=== PATIENT | female | born 1950 | race Caucasian/White ===

== ENCOUNTER 2021-11-12 07:48 | Outpatient (CLI) | payer MEDICARE, BC, SELFPAY ==
[2021-11-12 12:01] LABS: Alanine Aminotransferase* 33 U/L (4-35); Triglycerides* 52 mg/dL (40-149)
[2021-11-12 12:02] LABS: Cholesterol* 233 mg/dL (90-199); HDL Cholesterol* 104 mg/dL (>=50); LDL Cholesterol Calculated 119 mg/dL (<100)
[2021-11-12 12:04] LABS: Glucose* 95 mg/dL (60-115)
== END 2021-11-12 07:49 | disposition home or self-care (01) ==
PROVIDERS: PCP Internal Medicine; Visit Provider Internal Medicine
DX: Z00.00 Encounter for general adult medical examination without abnormal findings (principal); E78.5 Hyperlipidemia, unspecified; Z13.6 Encounter for screening for cardiovascular disorders
CPT/HCPCS: 80061; 82947; 84460

== ENCOUNTER 2021-11-17 08:46 | Outpatient (CLI) | payer MEDICARE, BC, SELFPAY ==
--- NOTE | 2021-11-17 09:15 | CRLHL7_ITS ---
For Patients: As a result of the Century Cures Act, medical imaging exams and procedure reports are released immediately into your electronic medical record. You may view this report before your referring provider. If you have questions, please contact your health care provider. BILATERAL SCREENING MAMMOGRAM WITH COMPUTER-AIDED DETECTION AND TOMOSYNTHESIS TECHNIQUE: CC and MLO views were obtained. These mammographic images have been obtained using full-field digital technique. These mammographic images were interpreted with the benefit of computer-aided detection. Breast Tomosynthesis was used in this interpretation. COMPARISON FILM: 10/29/20, 10/29/19, 07/18/18. FINDINGS: There are scattered areas of fibroglandular density IMPRESSION: There is no radiographic evidence for malignancy. ASSESSMENT: BI-RADS Category 1: Negative RECOMMENDATION: Routine screening mammogram in 1 year. A lay language report of this examination will be provided to the patient. Jason Dumont M.D. Diagnostic Radiologist [email or web address] WILLIE/Dictated by: Jason Dumont MD @ 11/17/2021 12:43:00 PM (Electronically Signed)
== END 2021-11-17 08:47 | disposition home or self-care (01) ==
LOC: MAMMO 08:48
PROVIDERS: PCP Internal Medicine; Visit Provider Internal Medicine
DX: Z12.31 Encounter for screening mammogram for malignant neoplasm of breast (principal)
CPT/HCPCS: 77063; 77067

== ENCOUNTER 2022-11-19 07:49 | Outpatient (CLI) | payer MEDICARE, SELFPAY ==
--- NOTE | 2022-11-19 08:15 | CRLHL7_ITS ---
For Patients: As a result of the Century Cures Act, medical imaging exams and procedure reports are released immediately into your electronic medical record. You may view this report before your referring provider. If you have questions, please contact your health care provider. BILATERAL SCREENING MAMMOGRAM WITH COMPUTER-AIDED DETECTION AND TOMOSYNTHESIS TECHNIQUE: CC and MLO views were obtained. These mammographic images have been obtained using full-field digital technique. These mammographic images were interpreted with the benefit of computer-aided detection. Breast Tomosynthesis was used in this interpretation. COMPARISON FILM: 11/17/21, 10/29/20, 10/29/19. FINDINGS: There are scattered areas of fibroglandular density IMPRESSION: There is no radiographic evidence for malignancy. ASSESSMENT: BI-RADS Category 2: Benign RECOMMENDATION: Routine screening mammogram in 1 year. A lay language report of this examination will be provided to the patient. Jason Dumont M.D. Diagnostic Radiologist [email or web address] WILLIE/Dictated by: Jason Dumont MD @ 11/25/2022 11:00:00 AM (Electronically Signed)
== END 2022-11-19 07:50 | disposition home or self-care (01) ==
LOC: MAMMO 07:51
PROVIDERS: PCP Internal Medicine; Visit Provider Internal Medicine
DX: Z12.31 Encounter for screening mammogram for malignant neoplasm of breast (principal)
CPT/HCPCS: 77063; 77067; 80061

== ENCOUNTER 2023-11-21 08:25 | Outpatient (CLI) | payer MEDICARE, BC, SELFPAY ==
--- OUTSIDE RECORDS SUMMARY | 2023-11-25 00:30 | XMS_ITS | Clinical Summary ---
Author Organization [facility] Address [place], [place] [address] Care Team Providers Care Aerial Hurricane Hunter Name Role Phone Provider, [facility] Primary Care Provider Un available Allergies No known active allergies Medications Medication Sig Dispensed Refills Start Date End Date Status MULTIVITAMIN/IRON/FOLI C ACID (CENTRUM ULTRA WOMEN'S ORAL) Take 1 tablet by mouth once daily. Active medication order composer TRIPLE FLEX 50, (GLUCOSAMINE, CHONDROITIN, CALCIUM & VIT D) TAKE ONE DAILY 0 04/24/2015 Active calcium with vitamin D3 (CALCIUM 500+D) tablet Take 1 tablet by mouth once daily with a meal. 0 04/24/2015 Active ondansetron (ZOFRAN) 4 mg tabletIndications:Naus ea and vomiting, intractability of vomiting not specified, unspecified vomiting type Take 1 tablet by mouth every 8 hours if needed for Nausea/Vomiting. 10 tablet 07/17/2017 Active triamcinolone (ARISTOCORT; KENALOG) 0.1 % creamIndications:Rash and nonspecific skin eruption Apply topically to affected area(s) 3 times daily. 1 Tube 3 02/13/2018 Active Active Problems Problem Noted Date Diagnosed Date Allergic rhinitis, cause unspecified 02/08/2006 Resolved Problems Problem Noted Date Diagnosed Date Resolved Date Nausea alone 09/14/2012 12/25/2012 Elevated lipase 09/12/2012 12/25/2012 Elevated LFTs 09/12/2012 12/25/2012 Gallstone pancreatitis 09/12/201212/25 Unspecified sinusitis (chronic) 02/08/2006 12/25/2012 Immunizations Name Administration Dates Next Due AMB Influenza, IIV4 PF (=>6 mos Flulaval,Fluzone Fluarix)(Flu Clinic Only) 12/24/2013 Hepatitis B (Adult) 03/08/2007,10/10/2006,2006 Influenza, High-dose Inactivated 04/24/2015 Influenza, IIV3 (Age >=3 years) 01/18/2011,01/24 Pneumococcal conj 13-Valent (Prevnar 13) 016 Td, Preservative Free (age >= 7 Years) 7 Tdap 12/25/2012 Zoster (Zostavax-ZVL, live) 01/19/2011 Family History Medical History Relation Name Comments Good Health Brother 1 Ruddy Good Health Brother 2 Drew Cancer Father lung Cancer dx@ age 69 Other Mother COPD, pacemaker Cancer Sister 1 No Ovarian dx @ ag e 35 Good Health Sister 2 Pratima Cancer-breast No Family History Relation Name Status Comments Brother 1 Ruddy Alive Brother 2 Drew Alive Father (Age 74) lung cance r Mother Alive Sister 1 No Alive Sister 2 Pratima Alive Social History Tobacco Use Types Packs/Day Years Used Date Smoking Tobacco: Never Smokeless Tobacco: Never Alcohol Use Standard Drinks/Week Comments Yes 0 (1 standard drink = 0.6 oz pure alcohol) Less than one time monthly - usually only at holidays Sex and Gender Information Value Date Recorded Sex Assigned at Not on file Gender Identity Not on file Sexual Orientation Not on file Obstetrics History Para Term AB IAB SAB Ectopic Multiple Livin g Live Births 2 2 Date Outcome GA Total Labor Labor/2nd/3rd Weight Sex Type Anes PTL Martha A1 A5 Name Clin Para Para Last Filed Vital Signs Vital Sign Reading Time Taken Comments Blood Pressure 120/72 07/17/2017 2:37 PM CDT Pulse 93 08/10/2021 2:00 PM CDT Temperature 37.1 ??C (98.8 ??F) 07/17/2017 2:37 PM CD T Respiratory Rate 14 08/10/2021 2:00 PM CDT Oxygen Saturation 98% 08/10/2021 2:00 PM CDT Inhaled Oxygen Concentration - - Weight 51.7 kg (114 lb) 08/10/2021 2:00 PM CDT Height 149.9 cm (4' 11) 08/10/2021 2:00 PM CDT Body Mass Index 23.03 08/10/2021 2:00 PM CDT Plan of Treatment Health Maintenance Due Date Last Done Comments Hepatitis C screening for ag e 18-79 02/21/1968 Zoster (shingles) series for age 50+ (2 of 3) 03/16/2011 01/19/2011 BMI (ht and wt on same day) for age 18+ 04/24/2016 04/24/2015 Depression screening for age 12+ 04/24/2016 04/24/19 16 Pneumococcal series for age 65+ (2 of 2 - PPSV23 or PCV20) 04/24/2016 04/24/2015 Mammogram for age 45-75 03/30/2018 03/30/19 18, 03/30/2017 (Completed outside of [facility]), 11/12/2015, Additional history exists Colonoscopy through age 75 04/20/202004/20, 04/20/2010, 04/20/2010 Lipids for age 45-75 04/24/2020 04/24/2015, 12/26/19 13 COVID-19 vaccine series ( season) 2022 01/31/2021 Tetanus booster 12/25/2022 12/25/2012, 09/06/2006 Influenza for age 65+ 11/27/2023 04/24/2015 , 12/24/2013, 01/18/2011, Additional history exists Tdap Completed 12/25/2012 DEXA/DXA scan for age 65+ Completed 05/01/2015 Procedures Procedure Name Priority Date/Time Associated Diagnosis Comments SCAN-MAMMOGRAPHY REPORT 03/30/2017 12:00 AM IT ANALYST XR DXA BONE DENSITY 2 SITES AXIAL Routine 05/01/2015 9:32 AM IT ANALYST Asymptomatic menopausal state LIPID PANEL W REFLEX MEASURED LDL Routine 04/24/2015 11:00 AM IT ANALYST Screening for cholesterol level SCAN-COLONOSCOPY 04/20/2010 12:0 0 AM IT ANALYST from Last 3 Months or Most Recently Relevant to Health Maintenance Results * SCAN-MAMMOGRAPHY REPORT (03/30/2017 12:00 AM IT ANALYST) Anatomical Region Laterality Modality Other Scanner OTHER * XR DEXA BONE DENSITY 2 SITES [92381.1] (05/01/2015 9:32 AM [facility]) Anatomical Region Laterality Modality Spine, HIPS, HIPL, HIPR Digital Radiography 05/02/2015 9:13 AM IT ANALYST Narrative 05/02/2015 10:32 AM IT ANALYST Indication: Menopausal state. Additional clinical history is that on further interviewing the patient reports that she has had prior surgery of the lumbar spine. ?? Technique: DEXA bone density 2 sites. Comparison: No previous. Findings AP spine bone density: At L1-L2 the bone mineral density is 1.029 g/cm2 corresponding to a young adult T-score -1.1. Dual femur bone density: In the left femoral neck the bone mineral density is 0.842 g/cm2 corresponding to a young adult T-score -1.4. In the right femoral neck the bone mineral density is 0.829 g/cm2 corresponding to a young adult T-score -1.5. FRAX assessment: ??The probability of a major osteoporotic fracture is 8.4 percent within the next 10 years. ??The probability of a hip fracture is 0.9 percent within the next 10 years. Impression: Osteopenia. ??A follow up study is suggested in 2 years. Dictated by Brandy Zambrano MD @ Apr ??2015 ??9:13AM Claire Barfield DO DEXA * (ABNORMAL) LIPID PANEL W REFLEX MEASURED LDL (04/24/2015 11:00 AM [facility]) CHOLESTEROL,TOTAL 234(H) 100 - 199 mg/dL 04/24/2015 1:08 PM [facility] TRIGLYCERIDES 49 <150 mg/dL 04/24/2015 1:08 PM [facility] HDL CHOLESTEROL 101 >40 mg/dL 04/24/2015 1:08 PM [facility] NON-HDL CHOLESTEROL 133 <145 mg/dl 04/24/2015 1:08 PM [facility] CHOL/HDL RATIO 2.32 <4.50 04/24/2015 1:08 PM [facility] LDL CHOLESTEROL 123 <=130 mg/dL 04/24/2015 1:08 PM [facility] PATIENT STATUS FASTING 04/24/2015 1:08 PM [facility] Blood specimen (specimen) BLOOD SPECIMEN / Unknown Butterfly / Unknown 04/24/2015 11:00 AM IT ANALYST 04/24/2015 11:01 AM IT ANALYST Claire Barfield DO CHEMISTRY [facility] [address] [facility] [place] [address] * SCAN-COLONOSCOPY (04/20/2010 12:00 AM IT ANALYST) Narrative Procedure Note Scanner - 04/20/2010 12:00 AM IT ANALYST Scanner OTHER from Last 3 Months or Most Recently Relevant to Health Maintenance Advance Directives * Full Code (Latest Code Status on File) Date Activated Date Inactivated Comments 09/12/2012 9:08 PM 09/16/2012 12:38 PM Care Teams Aerial Hurricane Hunter Relationship Specialty Start Date End Date Provider, [facility] . PCP - General 07/21/21
--- OUTSIDE RECORDS SUMMARY | 2023-11-25 00:30 | XMS_ITS | Clinical Summary ---
Author Organization [facility] Address [address] [place] [address] Care Team Providers Care Gastroenterology Teacher Name Role Phone Unavailable Primary Care Provider Unavailabl e Source Comments If you need additional information that is not available on Care Everywhere, please contact our Medical Records Department during business hours (Tuesday - Tuesday, 8 am - 5 pm) at . During nonbusiness hours, please contact our Trauma and Emergency Center at .[facility] and [facility] Allergies No known active allergies Medications * Medications may not be up to date as of this document. Always verify current medications with the patient. Medication Sig Dispensed Refills Start Date End Date Status multivitamin tablet Take 1 Tablet by mouth daily Active awfhsbgpxwm-wte-atwmhp oitin 750-375-400 mg caplet Take 2 Caplet by mouth daily Active cholecalciferol, Vitamin D3, (VITAMIN D3) 125 mcg (5,000 unit) tablet Take 5,000 Units by mouth daily Active calcium carbonate 1250 mg (500 MG CA++ PER TAB) 500 mg calcium (1,250 mg) Take 500 mg by mouth daily Active Social History Tobacco Use Types Packs/Day Years Used Date Smoking Tobacco: Never Smokeless Tobacco: Never Sex and Gender Information Value Date Recorded Sex Assigned at Not on file Gender Identity Not on file Sexual Orientation Not on file Obstetrics History Last Filed Vital Signs Vital Sign Reading Time Taken Comments Blood Pressure 144/71 09/10/2021 1:13 PM CDT Pulse 103 09/10/2021 1:13 PM CDT Temperature 36.8 ??C (98.2 ??F) 09/10/2021 1:13 PM CD T Respiratory Rate 16 09/10/2021 1:13 PM CDT Oxygen Saturation 97% 09/10/2021 1:13 PM CDT Inhaled Oxygen Concentration - - Weight - - Height - - Body Mass Index - - Plan of Treatment Health Maintenance Due Date Last Done Comments HEPATITIS C SCREENING 1950 DEPRESSION/ANXIETY PHQ4 1962 LIPID SCREEN 02/21/1968 WELLNESS VISIT 02/21/1968 PERTUSSIS 1969 COLONOSCOPY 1995 DIABETES SCREENING 1995 SHINGLES VACCINE (SHINGRIX) (2 of 3) 03/16/2011 01/19/2011 BONE DENSITY 2015 PNEUMOCOCCAL AGES 65 YEARS OR MORE (2 of 2 - PPSV23 or PCV20) 04/24/2016 04/24/2015 MAMMOGRAM 11/11/2016 11/12/2015, 12/28, 01/23/2013, Additional history exists COVID-19 Vaccine ( - 2022- season) 2022 DTaP/Tdap/Td Vaccine (2 - Td or Tdap) 12/25/2022 12/25/2012, 09/06/2006 INFLUENZA (#1) 2023 04/24/2015, 11/27, 01/18/2011, Additional history exists Hepatitis B Vaccine Completed 03/08/2007, 10/10/2006, 09/06/2006 HPV Vaccine Aged Out No longer eligi ble based on patient's age to complete this topic POLIO (IPV) Vaccine Aged Out No longe r eligible based on patient's age to complete this topic [address] [place] [id number]
== END 2023-11-21 08:26 | disposition home or self-care (01) ==
LOC: NFLDREF 11-25 00:29
PROVIDERS: PCP Internal Medicine; Referring Provider Internal Medicine; Visit Provider Internal Medicine
DX: E78.5 Hyperlipidemia, unspecified (principal)
CPT/HCPCS: 80061

== ENCOUNTER 2023-12-15 11:15 | Outpatient (CLI) | payer MEDICARE, BC, SELFPAY ==
--- OUTSIDE RECORDS SUMMARY | 2023-12-15 11:19 | XMS_ITS | Clinical Summary ---
Author Organization [facility] Address [address] [place] [address] Care Team Providers Care Spanish Moss Picker Name Role Phone Unavailable Primary Care Provider Unavailabl e Source Comments If you need additional information that is not available on Care Everywhere, please contact our Medical Records Department during business hours (Tuesday - Tuesday, 8 am - 5 pm) at . During nonbusiness hours, please contact our Trauma and Emergency Center at .[facility] Allergies No known active allergies Medications * Medications may not be up to date as of this document. Always verify current medications with the patient. Medication Sig Dispensed Refills Start Date End Date Status multivitamin tablet Take 1 Tablet by mouth daily Active fhpcwyqfhsy-eag-uxrzcp oitin 750-375-400 mg caplet Take 2 Caplet [...] or PCV20) 04/24/2016 04/24/2015 MAMMOGRAM 11/11/2016 11/12/2015, 10, 01/23/2013, Additional history exists DTaP/Tdap/Td Vaccine (2 - Td or Tdap) 12/25/2022 12/25/2012, 09/06/2006 COVID-19 Vaccine ( - 2022- season) 2023 Influenza Vaccine (#1) 2023 6, 12/24/2013, 01/18/2011, Additional history exists Hepatitis B Vaccine Completed 03/08/2007, 10/10/2006, 09/06/2006 HPV Vaccine Aged Out No longer eligi ble based on patient's age to complete this topic POLIO (IPV) Vaccine Aged Out No longe r eligible based on patient's age to complete this topic [address] [place] [address]
--- OUTSIDE RECORDS SUMMARY | 2023-12-15 11:19 | XMS_ITS | Clinical Summary ---
Author Organization [facility] Address [place], [place] [address] Care Team Providers Care Grab Jack Worker Name Role Phone Provider, Non[facility] Primary Care [...] pancreatitis 09/12/201212/25 Unspecified sinusitis (chronic) 02/08/2006 12/25/2012 Encounters Date Type Department Care Team Description 12/14/2023 Transcribe Orders [facility] [address] [address] Tammie Gusman, ASSISTANT GUEST SERVICES MANAGER from Last 3 Months Immunizations Name Administration Dates Next Due AMB [...] 08/10/2021 2:00 PM CDT Plan of Treatment Upcoming Encounters Date Type Department Care Team (Late st Contact Info) Description 12/20/2023 11:00 AM CDT Appointment [facility] [address] [facility] [place] [address] Press, Britta, DPT [address] [place] [address] Health Maintenance Due Date Last Done Comments [...] 03/30/2018 03/30/19 18, 03/30/2017 (Completed outside of [facility]), 11/12/2015, Additional history exists Colonoscopy through age 75 04/20/202004/20, 04/20/2010, 04/20/2010 Lipids for age 45-75 04/24/2020 04/24/2015, 12/26/19 13 Tetanus booster 12/25/2022 12/25/2012, 09/06/2006 COVID-19 vaccine series ( season) 2023 01/31/2021, 06/09/2020, 05/08/2020 Influenza for age 65+ 11/27/2023 04/24/2015 , 12/24/2013, 01/18/2011, Additional history exists Tdap Completed 12/25/2012 DEXA/DXA scan for age 65+ Completed 05/01/2015 Procedures Procedure Name Priority Date/Time Associated Diagnosis Comments SCAN-MAMMOGRAPHY REPORT 03/30/2017 12:00 AM UNDERWEAR HEMMER XR DXA BONE DENSITY 2 SITES AXIAL Routine 05/01/2015 9:32 AM UNDERWEAR HEMMER Asymptomatic menopausal state LIPID PANEL W REFLEX MEASURED LDL Routine 04/24/2015 11:00 AM UNDERWEAR HEMMER Screening for cholesterol level SCAN-COLONOSCOPY 04/20/2010 12:0 0 AM UNDERWEAR HEMMER from Last 3 Months or Most Recently Relevant to Health Maintenance Results * SCAN-MAMMOGRAPHY REPORT (03/30/2017 12:00 AM UNDERWEAR HEMMER) Anatomical Region Laterality Modality Other Scanner OTHER * XR DEXA BONE DENSITY 2 SITES [14533.1] (05/01/2015 9:32 AM UNDERWEAR HEMMER) Anatomical Region Laterality Modality Spine, HIPS, HIPL, HIPR Digital Radiography 05/02/2015 9:13 AM UNDERWEAR HEMMER Narrative 05/02/2015 10:32 AM UNDERWEAR HEMMER Indication: Menopausal state. Additional clinical history is [...] W REFLEX MEASURED LDL (04/24/2015 11:00 AM UNDERWEAR HEMMER) CHOLESTEROL,TOTAL 234(H) 100 - 199 mg/dL 04/24/2015 1:08 PM [facility] TRIGLYCERIDES 49 <150 mg/dL 04/24/2015 1:08 PM [facility] HDL CHOLESTEROL 101 >40 mg/dL 04/24/2015 1:08 PM [facility] NON-HDL CHOLESTEROL 133 <145 mg/dl 04/24/2015 1:08 PM [facility] CHOL/HDL RATIO 2.32 <4.50 04/24/2015 1:08 PM [facility] LDL CHOLESTEROL 123 <=130 mg/dL 04/24/2015 1:08 PM [facility] PATIENT STATUS FASTING 04/24/2015 1:08 PM [facility] Blood specimen (specimen) BLOOD SPECIMEN / Unknown Butterfly / Unknown 04/24/2015 11:00 AM UNDERWEAR HEMMER 04/24/2015 11:01 AM UNDERWEAR HEMMER Claire Barfield DO CHEMISTRY Performing Organization Address City/State/[facility] Co de Phone Number [address] [address] * SCAN-COLONOSCOPY (04/20/2010 12:00 AM UNDERWEAR HEMMER) Narrative Procedure Note Scanner - 04/20/2010 12:00 AM UNDERWEAR HEMMER Scanner OTHER from Last 3 Months or Most Recently Relevant to Health Maintenance Advance Directives * Full Code (Latest Code Status on File) Date Activated Date Inactivated Comments 09/12/2012 9:08 PM 09/16/2012 12:38 PM Care Teams Grab Jack Worker Relationship Specialty Start Date End Date Provider, Non-[facility] . PCP - General 07/21/21
--- NOTE | 2023-12-15 11:30 | CRLHL7_ITS ---
For Patients: As a result of the Century Cures Act, medical imaging exams and procedure reports are released immediately into your electronic medical record. You may view this report before your referring provider. If you have questions, please contact your health care provider. BILATERAL SCREENING MAMMOGRAM WITH COMPUTER-AIDED DETECTION AND TOMOSYNTHESIS TECHNIQUE: CC and MLO views were obtained. These mammographic images have been obtained using full-field digital technique. These mammographic images were interpreted with the benefit of computer-aided detection. Breast Tomosynthesis was used in this interpretation. COMPARISON FILM: 11/19/22, 11/17/21, 10/29/20. FINDINGS: The breasts are heterogeneously dense, which may obscure small masses. IMPRESSION: There is no radiographic evidence for malignancy. ASSESSMENT: BI-RADS Category 1: Negative RECOMMENDATION: Routine screening mammogram in 1 year. A lay language report of this examination will be provided to the patient. Jason Dumont M.D. Diagnostic Radiologist [email or web address] SP/Dictated by: Jason Dumont MD @ 12/15/2023 12:13:00 PM (Electronically Signed)
== END 2023-12-15 11:16 | disposition home or self-care (01) ==
LOC: MAMMO 11:16
PROVIDERS: PCP Internal Medicine; Visit Provider Internal Medicine
DX: Z12.31 Encounter for screening mammogram for malignant neoplasm of breast (principal); R92.2 Inconclusive mammogram
CPT/HCPCS: 77063; 77067

== ENCOUNTER 2024-11-14 07:30 | Outpatient (CLI) | payer MEDICARE, BC, SELFPAY | END 2024-11-14 07:31 | disposition home or self-care (01) | LOC: NFLDREF 11-19 14:20 | PROVIDERS: PCP Internal Medicine; Referring Provider Internal Medicine; Visit Provider Internal Medicine | DX: E78.5 Hyperlipidemia, unspecified (principal) | CPT/HCPCS: 80061 ==

== ENCOUNTER 2024-12-17 09:00 | Outpatient (CLI) | payer MEDICARE, BC, SELFPAY ==
--- NOTE | 2024-12-17 09:15 | CRLHL7_ITS ---
For Patients: As a result of the Century Cures Act, medical imaging exams and procedure reports are released immediately into your electronic medical record. You may view this report before your referring provider. If you have questions, please contact your health care provider. INDICATION: BILATERAL SCREENING MAMMOGRAM, ASYPTOMATIC 74 Y/O FEMALE COMPARISON: 12/15/2023, 11/19/2022, 11/17/2021 TECHNIQUE: Digital mammogram in CC and MLO projections including computer-aided detection (CAD) and tomosynthesis. BREAST COMPOSITION: The breasts are heterogeneously dense, which may obscure small masses. FINDINGS: No suspicious findings. ASSESSMENT: BI-RADS 1 Negative RECOMMENDATION: Annual screening mammogram. A lay language report of this examination will be provided to the patient. Dictated by: Taya Ralph MD @ 12/19/2024 09:00:13 (Electronically Signed)
== END 2024-12-17 09:01 | disposition home or self-care (01) ==
LOC: MAMMO 09:01
PROVIDERS: PCP Internal Medicine; Visit Provider Internal Medicine
DX: Z12.31 Encounter for screening mammogram for malignant neoplasm of breast (principal); R92.333 Mammographic heterogeneous density, bilateral breasts
CPT/HCPCS: 77063; 77067